=== PATIENT | male | born 1935 | race Caucasian/White ===

== ENCOUNTER 2017-02-13 13:32 | Inpatient (IN) ==
[2017-02-13 14:51] LABS: MANUAL DIFF NEEDED? NO
[2017-02-13 15:01] LABS: BASO% 0.4 % (0.0-0.8); EOS# 0.05 X1000 (0.0-0.7); EOS% 0.6 % (0.0-10.0); HEMATOCRIT 28.2 % (42.0-52.0); IMM GRAN# 0.02 X1000 (0.0-0.04); IMM GRAN% 0.2 % (0.0-0.5); LYMPH# 0.89 X1000 (1.2-3.4); LYMPH% 10.9 % (20.5-51.1); MCH 31.8 PG (27-31); MCHC 31.9 g/dL (33-37); MCV 99.6 FL (81-99); MONO# 0.72 X1000 (0.11-0.59); MONO% 8.8 % (1.7-9.3); NEUT% 79.1 % (42.2-75.2); PLT 285 X1000 (130-400); RBC 2.83 XMIL (4.7-6.1)
[2017-02-13 15:07] LABS: AGAP 9; ALBUMIN 3.3 g/dL (3.5-5.0); ALKALINE PHOSPHATASE 33 U/L (32-122); BUN 46 mg/dL (8-22); CALCIUM 8.7 mg/dL (8.8-10.2); CHLORIDE 109 mmol/L (98-107); CK PROFILE 84 U/L (24-204); COSMO 305; GOT 12 U/L (10-34); GPT 9 U/L (10-44); POTASSIUM 4.3 mmol/L (3.5-5.1); SODIUM 143 mmol/L (136-145); TCO2 25 mmol/L (25-35); TOTAL PROTEIN 5.2 g/dL (6.3-8.3)
[2017-02-13] MEDS ORDERED: NS 1,000 ML IV ONE ×2 (15:44→17:18)
[2017-02-13] MEDS ORDERED: NS 2,000 ML ONE (15:48)
--- NOTE | 2017-02-13 16:40 | EKG Report ---
Test Performed on : 02/13/2017 2:45:15 PM Test Reason : emboli Blood Pressure : / mmHG Vent. Rate : 088 BPM Atrial Rate : 088 BPM P-R Int : 164 ms QRS Dur : 132 ms QT Int : 402 ms P-R-T Axes : -18 256 033 degrees QTc Int : 486 ms Normal sinus rhythm. Right bundle branch block Abnormal ECG When compared with ECG of 25-OCT-2015 11:50, QRS duration has decreased Unconfirmed Result
[2017-02-13 17:01] LABS: OCCULT BLOOD 1 POSITIVE (NEGATIVE)
--- NOTE | 2017-02-13 17:18 | PROVIDER DOCUMENTATION ---
This chart was entered by Gogo Camacho Scribe, acting as scribe for Willie Delatorre MD. HPI-Musculoskeletal Pain/Inj - GENERAL Chief Complaint: B/P Problems Stated Complaint: got weak and fell Time Seen by Provider: 02/13/17 14:31 Source: patient - HX OF PRESENT ILLNESS-MUSKULOSKELTAL Nature of Presenting Problem: Pt is 81 y/o M presents to the ED with weakness. Pt states got up and became weak and fell. Pt denies LOC or hitting head. Pt denies pain Quality of Pain: reports: none Severity in ED: mild Onset/Duration: just prior to arrival Timing: still present Modifying Factors: improves with: nothing Any recent injury?: Yes (fall ) Locality of Occurance: Home Similar Symptoms Previously?: No Recently seen or treated by another doctor?: No - FALL INJURY Location of Pain/Injury: reports: none Pain Radiation: reports: no radiation Reason for Fall: reports: lost balance Symptoms prior to fall:: reports: none Loss of Consciousness: no loss of consciousness Injury Associated Symptoms: reports: weakness. denies: arm pain, back/neck pain , chest pain, diaphoresis, dizziness, headaches, joint pain, muscle aches, nausea, puncture wound, shortness of breath, sensory/motor loss, snap/crack/pop sensation, pain with inspiration, unable to bear weight, vomiting, trouble walking Review of Systems - Adult - REVIEW OF SYSTEMS - ADULT Constitutional: reports: no symptoms reported Eyes: reports: no symptoms reported Ears, Nose, Mouth & Throat: reports: no symptoms reported Cardiovascular: reports: no symptoms reported Respiratory: reports: no symptoms reported Gastrointestinal: reports: no symptoms reported Genitourinary: reports: no symptoms reported Musculoskeletal: reports: muscle weakness. denies: bone pain, joint pain, neck pain Integumentary: reports: no symptoms reported Neurological: reports: no symptoms reported Psychiatric: reports: no symptoms reported Endocrine: reports: no symptoms reported Hematologic/Lymphatic: reports: no symptoms reported Allergic/Immunologic: reports: no symptoms reported All Other Systems: Reviewed and Negative Past History - Adult - PAST MEDICAL HISTORY-ADULT Review of Records: reports: Nursing Assessment Review, Medications Reviewed, Social history reviewed & non-contributory. Major Childhood Illnesses: reports: denies history Cardiovascular: reports: hyperlipidemia Respiratory: reports: denies history Gastrointestinal: reports: GERD Obstetrical/Gynecological: reports: denies history Genitourinary: reports: denies history Musculoskeletal: reports: denies history Neurological: reports: denies history Endocrine/Immune: reports: Diabetes Other Conditions: reports: other (Seasonal allergies ) Additional History: Prostate problems - PRIOR SURGERIES/PROCEDURES Surgical/Procedure History: reports: appendectomy, cholecystectomy, hernia repair, other (Colon resection) - PRIOR HOSPITALIZATIONS Prior Hospitalizations: reports: none - IMMUNIZATION STATUS Childhood Immunizations: See Nurse Assessment Flu Vaccine: See Nurse Assessment - FAMILY HISTORY Family History: reviewed, not pertinent - SOCIAL HISTORY Smoking: denies Substance Use: denies Living Situation: family Physical Exam-Injury Related - Physical Exam-Injury Related General Appearance: appears well, alert, no apparent distress Eyes: PERRL/EOMI, pink conjunctivae Head, Ears, Nose, Mouth & Throat: normocephalic/atraumatic, moist mucous membranes, normal ENT inspection Neck: non-tender, full range of motion, supple, normal inspection Respiratory: chest non-tender, lungs clear, normal breath sounds Cardiovascular: normal peripheral pulses, regular rate, rhythm Abdominal Exam: normal bowel sounds, non tender, soft Lymphatic: no adenopathy Back Exam: normal inspection, no CVA tenderness, no vertebral tenderness Extremity: normal range of motion, non-tender, normal inspection Integumentary: normal color, warm/dry Neurologic: grossly normal Psych/Mental Status: normal mood/affect, oriented x 3 Progress - PLAN OF CARE/RESULTS Progress/Plan/Lab Results: Vital Signs - 8 hr 02/13/17 13:33 02/13/17 15:45 02/13/17 16:17 Temperature 97.5 F L Pulse Rate 83 80 Pulse Rate [Sitting] 65 Pulse Rate [Standing] 70 Pulse Rate [Supine] 60 Respiratory Rate 20 21 Blood Pressure 112/43 115/57 Blood Pressure [Sitting] 109/65 Blood Pressure [Standing] 74/38 Blood Pressure [Supine] 115/57 O2 Sat by Pulse Oximetry 96 97 Laboratory Results - last 24 hr 02/13/17 02/13/17 02/13/17 14:48 14:48 14:48 WBC 8.20 RBC 2.83 L Hgb 9.0 L Hct 28.2 L MCV 99.6 H MCH 31.8 H MCHC 31.9 L RDW Std Deviation 12.9 Plt Count 285 MPV 9.0 Immature Gran % (Auto) 0.2 Neut % (Auto) 79.1 H Lymph % (Auto) 10.9 L York % (Auto) 8.8 Eos % (Auto) 0.6 Baso % (Auto) 0.4 Immature Gran # (Auto) 0.02 Neut # (Auto) 6.49 Lymph # (Auto) 0.89 L York # (Auto) 0.72 H Eos # (Auto) 0.05 Baso # (Auto) 0.03 Sodium 143 Potassium 4.3 Chloride 109 H Carbon Dioxide 25 Anion Gap 9 BUN 46 H Creatinine 1.1 Estimated GFR/1.73 m2 > 60 BUN/Creatinine Ratio 42 Glucose 253 H Calculated Osmolality 305 Calcium 8.7 L Total Bilirubin 0.20 AST 12 ALT 9 L Alkaline Phosphatase 33 Creatine Kinase 84 Troponin T < 0.010 Total Protein 5.2 L Albumin 3.3 L Globulin 2.0 Albumin/Globulin Ratio 2.0 Stool Occult Blood 02/13/17 Unknown WBC RBC Hgb Hct MCV MCH MCHC RDW Std Deviation Plt Count MPV Immature Gran % (Auto) Neut % (Auto) Lymph % (Auto) York % (Auto) Eos % (Auto) Baso % (Auto) Immature Gran # (Auto) Neut # (Auto) Lymph # (Auto) York # (Auto) Eos # (Auto) Baso # (Auto) Sodium Potassium Chloride Carbon Dioxide Anion Gap BUN Creatinine Estimated GFR/1.73 m2 BUN/Creatinine Ratio Glucose Calculated Osmolality Calcium Total Bilirubin AST ALT Alkaline Phosphatase Creatine Kinase Troponin T Total Protein Albumin Globulin Albumin/Globulin Ratio Stool Occult Blood POSITIVE A Orders Category Date Time Status Orthostatic Vital Signs NOW Care 02/13/17 14:33 Active CBC WITH DIFF [HEME] Stat Lab 02/13/17 14:48 Completed CK PROFILE [SP CHEM] Stat Lab 02/13/17 14:48 Completed COMPREHENSIVE METABOLIC PANEL [CHEM] Stat Lab 02/13/17 14:48 Completed OCCULT BLOOD SCREEN STOOL PL Stat Lab 02/13/17 Completed TROPONIN T Stat Lab 02/13/17 14:48 Completed 0.9% Sodium Chloride Inj [Ns] 1,000 ml Med 02/13/17 15:48 Discontinued .ROUTE As Directed 0.9% Sodium Chloride Inj [Ns] 1,000 ml Med 02/13/17 15:44 Discontinued IV 999 mls/hr EKG [EKG] Routine Ther 02/13/17 14:33 Draft Result Diagrams: 02/13/17 14:48 02/13/17 14:48 - EKG 1 Time of EKG reading by physician:: 14:45 EKG Read and Signed by:: Willie Delatorre EKG Interpretation (*Must complete 3 of following elements*): Abnormal Rate: 88 Rhythm: normal sinus rhythm Comments: RBBB - CONSULTS/PCP/HOSPITALIST Notification #1 *Consult/PCP/Hospitalist*: Dr. Vásquez Time Discussed: 17:11 Reason/Comments: Dr. Delatorre consulted with Dr. Vásquez about admit of Pt Consult Disposition: Admit Departure - Departure Date of Disposition Decision: 02/13/17 Time of Disposition Decision: 17:12 DIAGNOSIS: Upper GI bleed Anemia Qualifiers: Anemia type: iron deficiency Iron deficiency anemia type: chronic blood loss Qualified Code(s): D50.0 - Iron deficiency anemia secondary to blood loss ( chronic) Disposition: ADMITTED INPATIENT 09 Certified Medical Emergency: Emergent Condition: Stable Referrals and Follow-Ups: Yan Keys DO [Primary Care Provider] - - Critical Care Note This patient required my direct & personal management of CC.: No This chart was documented by the indicated scribe, (Gogo Camacho, Ismael) and accurately reflects the services I performed and decisions made by me, Willie Delatorre MD, as attested by the provider's signature.
[2017-02-13] MEDS ORDERED: PROTONIX IV ONE (17:21)
[2017-02-13] MEDS ORDERED: SODIUM CHLORIDE 0.9% INJ ONE (17:21)
[2017-02-14] MEDS ORDERED: VENTOLIN HFA INH PRN (08:59)
[2017-02-14 09:53] LABS: HEMATOCRIT 24.8 % (42.0-52.0); MCH 31.6 PG (27-31); MCHC 32.3 g/dL (33-37); MPV 8.8 FL (7.4-10.4); RBC 2.53 XMIL (4.7-6.1)
[2017-02-14] MEDS: TRICOR PO SCH (10:07)
[2017-02-14] MEDS: JANUVIA PO SCH (10:07)
[2017-02-14] MEDS: SODIUM CHLORIDE 0.9% INJ SCH (10:08)
[2017-02-14] MEDS: ZYRTEC PO SCH (10:08)
[2017-02-14] MEDS: CARAFATE LIQUID PO SCH ×3 (10:08→20:38)
[2017-02-14] MEDS: PROTONIX IV SCH (10:08)
[2017-02-14] MEDS ORDERED: TYLENOL PO ONE (10:08)
[2017-02-14] MEDS ORDERED: BENADRYL PO ONE (10:08)
[2017-02-14] MEDS: ZOCOR PO SCH (10:08)
--- NOTE | 2017-02-14 10:15 | HISTORY AND PHYSICAL ---
PRIMARY CARE PHYSICIAN: Yan Keys DO. CHIEF COMPLAINT: Weakness with a fall. HISTORY OF PRESENTING ILLNESS: This is an 81-year-old, male who presented to [facility] ER with complaints of generalized weakness. States that when he stood up, he became weak and fell at home. Denied any loss of consciousness or hitting head. His workup in the ER showed his orthostatic blood pressures to be lying, 115/57 with a pulse of 60; sitting 109/65 with a pulse of 65; and standing 74/38 with a pulse of 70. His laboratory data showed an hemoglobin and hematocrit of 9 and 28.2. They did a stool for occult blood that was positive. So, he was admitted to the medical unit at [facility] for further evaluation and treatment. He also complained of some burning discomfort in his stomach and esophagus that has been going on for quite a while. Denied any black, tarry stools. He will need GI workup, but stable at this moment, and so it is felt that he can stay here at [facility] to be monitored at this time, but he will eventually need to be transferred to [facility] for GI workup. PAST MEDICAL HISTORY: Hyperlipidemia, GERD and diabetes type 2. PAST SURGICAL HISTORY: Appendectomy, cholecystectomy, hernia repair and colon resection. FAMILY HISTORY: Noncontributory. SOCIAL HISTORY: Currently lives with family. Denies any tobacco, alcohol, or illicit drug use. ALLERGIES: To penicillin. HOME MEDICATIONS: He is on aspirin 81 mg daily. That will be held. Ventolin inhaler 2 puffs q.6 hours p.r.n. Cetirizine 10 mg p.o. daily. Fenofibrate 160 mg p.o. daily. Imipramine 25 mg p.o. at bedtime. Lansoprazole 15 mg p.o. daily, simvastatin 40 mg p.o. daily. Januvia 100 mg p.o. daily, and Flomax 0.4 mg p.o. at bedtime. LABORATORY DATA: Showed a white blood cell count of 8.20, hemoglobin 9, hematocrit 28.2, platelets 285. Sodium of 143, potassium 4.3, chloride 109, CO2 of 25, BUN of 46 , creatinine 1.1. Glucose 253. Creatine kinase of 84, troponin less than 0.010. Stool for occult blood was positive. EKG showed normal sinus rhythm at 88. REVIEW OF SYSTEMS: He denied any fever, chills, blurred vision, dizziness, chest pain, coughing, shortness of breath. He was positive for generalized weakness. Denied any abdominal pain, but did report reflux symptoms with burning in his stomach and up through his esophagus. He denied any nausea, vomiting, constipation, diarrhea, black tarry stools, or burning or hurting with urination. PHYSICAL EXAMINATION: VITAL SIGNS: On arrival, he had a temperature of 97.5, pulse 83, respirations 20, blood pressure 112/43, saturating 96% on room air. Orthostatic blood pressures on arrival, showed lying of 115/57 with a pulse of 60; sitting 109/65 with a pulse of 65; and standing 74/ 38 with a pulse of 70. Currently, he has a blood pressure of 118/77. GENERAL: This is an 81-year-old, male, who is lying in the bed, answers questions appropriately. HEENT: Normocephalic and atraumatic. Pupils are equal, round, reactive to light. Extraocular movements are intact. Oropharynx and nares are clear. NECK: Supple. LUNGS: Clear to auscultation bilaterally with equal lung expansion and chest wall movement. HEART: With regular rate and rhythm. No murmurs, rubs, or gallops. ABDOMEN: Soft, nontender, nondistended. Bowel sounds are present x4 quadrants. EXTREMITIES: There is no clubbing, cyanosis, or edema. NEUROLOGICAL: The cranial nerves 2-12 appear grossly intact. ASSESSMENT: 1. Fall. 2. Gastrointestinal bleed. 3. Orthostatic hypotension. 4. Gastroesophageal reflux disease. 5. Diabetes type 2. PLAN: He was admitted to the medical unit at [facility]. Placed on telemetry, diabetic diet. He was placed on normal saline at 75 mL an hour. He was given Protonix 40 mg IV x1 in the ER and we will continue that q.24. Continue his home medications except for his aspirin that we will hold and we will recheck a CBC, CMP and recheck orthostatics. As long as patient remains stable, we will plan for transfer to [facility] for a GI workup, most likely tomorrow. Pt does not have a living will at this time and is a full code. Dictated by NEELIMA Randhawa for Akin Vásquez MD cc: NEELIMA Randhawa MD Thomas E. Lockard, DO MTDD
--- NOTE | 2017-02-14 10:30 | PROGRESS NOTE ---
DATE: 02/14/2017 SUBJECTIVE: Patient notes he is feeling a little bit better. Denies any chest pain or palpitations. Currently denies any lightheadedness, dysuria. No frequency. PHYSICAL: Temperature 97, pulse 71, respiratory rate 18, BP 118/77, saturation 98% on room air. General: Patient is awake, alert. He is currently in no respiratory distress. He is still noted to be orthostatic. HEENT: Normocephalic, atraumatic. Neck: Supple. CV: Regular rate. Chest clear. Abdomen soft. Extremities: Moves all extremities. Neurologic: No changes. ASSESSMENT: 1. Anemia with heme-positive stool, likely gastritis versus gastric ulcer. 2. Reflux symptoms. 3. Hyperglycemia. PLAN: We will discuss with GI when they would like to do an EGD/colonoscopy as he certainly will need to have this done. He is currently stable. At this point, given his age, however it certainly would be warranted to transfuse one unit. cc: Akin Vásquez MD
[2017-02-14 10:49] LABS: AGAP 9; ALBUMIN 3.3 g/dL (3.5-5.0); ALKALINE PHOSPHATASE 32 U/L (32-122); BUN 30 mg/dL (8-22); CALCIUM 7.9 mg/dL (8.8-10.2); CHLORIDE 110 mmol/L (98-107); COSMO 294; GOT 15 U/L (10-34); GPT 10 U/L (10-44); POTASSIUM 3.5 mmol/L (3.5-5.1); SODIUM 142 mmol/L (136-145); TCO2 24 mmol/L (25-35); TOTAL PROTEIN 5.2 g/dL (6.3-8.3)
[2017-02-14] MEDS: NS 1,000 ML IV SCH ×2 (10:51→20:37)
[2017-02-14] MEDS: LASIX IV SCH ×2 (16:07→20:37)
[2017-02-14] MEDS ORDERED: LASIX ONE (20:21)
[2017-02-14] MEDS ORDERED: FLOMAX PO SCH (21:00)
[2017-02-14] MEDS ORDERED: TOFRANIL PO SCH (21:00)
[2017-02-15] MEDS: NS 1,000 ML IV SCH ×2 (06:45→08:32)
[2017-02-15] MEDS: CARAFATE LIQUID PO SCH ×2 (06:45→08:33)
[2017-02-15] MEDS ORDERED: PRILOSEC PO SCH (07:00)
[2017-02-15] MEDS: SODIUM CHLORIDE 0.9% INJ SCH (08:32)
[2017-02-15] MEDS: TRICOR PO SCH (08:33)
[2017-02-15] MEDS: ZOCOR PO SCH (08:33)
[2017-02-15] MEDS: JANUVIA PO SCH (08:33)
[2017-02-15] MEDS: PROTONIX IV SCH (08:33)
[2017-02-15] MEDS: ZYRTEC PO SCH (08:34)
[2017-02-15 09:25] LABS: HEMOGLOBIN 10.4 g/dL (14.0-18.0); MCHC 33.5 g/dL (33-37); MCV 92.3 FL (81-99); MPV 9.4 FL (7.4-10.4); RBC 3.36 XMIL (4.7-6.1)
[2017-02-15 09:39] LABS: AGAP 10; ALBUMIN 3.5 g/dL (3.5-5.0); ALKALINE PHOSPHATASE 36 U/L (32-122); BUN 18 mg/dL (8-22); CHLORIDE 106 mmol/L (98-107); COSMO 291; GOT 21 U/L (10-34); GPT 11 U/L (10-44); POTASSIUM 3.2 mmol/L (3.5-5.1); SODIUM 143 mmol/L (136-145); TCO2 27 mmol/L (25-35); TOTAL PROTEIN 5.5 g/dL (6.3-8.3)
[2017-02-15 09:58] VITALS: BP 124/54
--- NOTE | 2017-02-15 20:28 | DISCHARGE SUMMARY ---
ADMISSION DATE: 02/13/2017 DISCHARGE DATE: 02/15/2017 ADMISSION DIAGNOSES: 1. Fall. 2. Gastrointestinal bleed. 3. Orthostatic hypotension. 4. Gastroesophageal reflux disease. 5. Diabetes type 2. DISCHARGE DIAGNOSES: 1. Fall, resolved. 2. Gastrointestinal bleed. Stable. 3. Orthostatic hypotension, resolved. 4. Gastroesophageal reflux disease. 5. Diabetes type 2. SUMMARY OF FINDINGS: This is an 81-year-old male, who presented to the ER with complaints of generalized weakness. States that when he stood up, he became weak and fell at home. Denied any loss of consciousness or hitting his head. His blood pressures on arrival orthostatic showed lying 115/57, sitting 109/65, and standing 74/38. His hemoglobin and hematocrit was stable at 9 and 28.2, stool for occult blood was positive. He was admitted to [place], placed on a Protonix 40 mg IV q.24. We held his aspirin. He was rehydrated. His hemoglobin and hematocrit has actually improved to 10.4 and 31 after receiving 2 units of packed red blood cells on 02/14/2017, and it is felt now that he can be discharged home and follow up with GI on an outpatient basis for EGD/colonoscopy. DISCHARGE MEDICATIONS: Ventolin 2 puffs inhalation q.6 hours p.r.n., cetirizine 10 mg p.o. daily, fenofibrate 160 mg p.o. daily, imipramine 25 mg p.o. at bedtime, simvastatin 40 mg p.o. daily, Januvia 100 mg p.o. daily, tamsulosin 0.4 mg p.o. at bedtime. He can continue his home medication of Mucinex 1200 mg p.o. daily, Poly Hist CB liquid 1 teaspoon p.o. q.6 hours p.r.n., Prevacid 15 mg p.o. daily and metformin 500 mg p.o. daily. FOLLOWUP: He will need to follow up with his primary care physician in the next 1-2 weeks. We will refer him to Colton Kang MD outpatient, to call his office in the a.m. for a followup appointment for an outpatient GI workup. All discharge instructions have been reviewed with the patient and he verbalized understanding. TIME SPENT: 35 minutes. Dictated by NEELIMA Randhawa for Akin Vásquez MD cc: NEELIMA Randhawa MD Thomas E. Lockard, DO Khurshid Yousuf, MD
== END 2017-02-15 03:10 | disposition home or self-care (01) ==
LOC: P.MEDSURG 13:32 → P.ED 13:32 → OBSVTOIN 18:32
PROVIDERS: ATTEND Family Medicine